=== PATIENT | female | born 1955 | race Native Hawaiian/Other Pacific Islander ===

== ENCOUNTER 2016-07-27 08:53 | Outpatient (CLI) | payer BC ==
[2016-07-27 10:14] LABS: PLATELET COUNT 223 K/uL (152-353)
[2016-07-27 10:21] LABS: POTASSIUM 4.4 mmol/L (3.6-5.2); SODIUM 136 mmol/L (136-145)
== END 2016-07-27 21:26 | disposition home or self-care (01) ==
LOC: LABW 08:53
PROVIDERS: Podiatrist
DX: Z01.810 Encounter for preprocedural cardiovascular examination (principal); Z01.811 Encounter for preprocedural respiratory examination; Z01.812 Encounter for preprocedural laboratory examination
CPT/HCPCS: 36415; 80053; 85002; 85027; 93005

== ENCOUNTER 2017-03-21 08:59 | Outpatient (CLI) | payer BC | END 2017-03-21 10:30 | disposition home or self-care (01) | LOC: MAMMO 08:59 | DX: Z12.31 Encounter for screening mammogram for malignant neoplasm of breast (principal) ==

== ENCOUNTER 2018-05-02 13:03 | Outpatient (CLI) | payer BC | END 2018-05-02 20:10 | disposition home or self-care (01) | LOC: MAMMO 13:03 | DX: Z12.31 Encounter for screening mammogram for malignant neoplasm of breast (principal) ==

== ENCOUNTER 2019-06-04 08:27 | Outpatient (CLI) | payer BC | END 2019-06-04 20:08 | disposition home or self-care (01) | LOC: MAMMO 08:27 | DX: Z12.31 Encounter for screening mammogram for malignant neoplasm of breast (principal) ==

== ENCOUNTER 2020-06-28 10:46 | Outpatient (CLI) | payer BC | END 2020-06-28 21:28 | disposition home or self-care (01) | LOC: MAMMO 10:46 | PROVIDERS: ATTEND Obstetrics & Gynecology | DX: Z12.31 Encounter for screening mammogram for malignant neoplasm of breast (principal) ==

== ENCOUNTER 2021-07-04 09:15 | Outpatient (CLI) | payer BC | END 2021-07-04 18:59 | disposition home or self-care (01) | LOC: MAMMO 09:15 | PROVIDERS: ATTEND Obstetrics & Gynecology | DX: Z12.31 Encounter for screening mammogram for malignant neoplasm of breast (principal) ==

== ENCOUNTER 2022-07-11 14:47 | Outpatient (CLI) | payer BC | END 2022-07-11 22:21 | disposition home or self-care (01) | LOC: MAMMO 14:47 | PROVIDERS: ATTEND Obstetrics & Gynecology | DX: Z12.31 Encounter for screening mammogram for malignant neoplasm of breast (principal); M81.0 Age-related osteoporosis without current pathological fracture ==